=== PATIENT | female | born 1995 | race Caucasian/White ===

== ENCOUNTER 2022-06-16 18:27 | Emergency (ER) | payer BC, SELFPAY ==
[2022-06-16 18:39] VITALS: BP 133/95; PULSE 98; RESP 16; TEMP 36.2; O2SAT 99; BMI 53.7
--- NOTE | 2022-06-16 18:45 | CRLHL7_ITS ---
For Patients: As a result of the Cures Act, medical imaging exams and procedure reports are released immediately into your electronic medical record. You may view this report before your referring provider. If you have questions, please contact your health care provider. INDICATION: Back pain. TECHNIQUE: Lumbar spine 2 view COMPARISON: None. FINDINGS: Bones: Alignment is normal. No fractures or significant bone lesions. Joints: Disc spaces and facets are unremarkable. Soft tissues: Unremarkable. IMPRESSION: Unremarkable lumbar spine. Dictated by Cholo Hernandez MD @ 06/16/2022 7:34:35 PM (Electronically Signed)
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
[2022-06-16] MEDS: KETOROLAC 10 MG TABLET PO (18:56)
== END 2022-06-16 19:19 | disposition home or self-care (01) ==
LOC: ED 19:08
PROVIDERS: Emergency Provider Family Medicine
DX: M54.50 Low back pain, unspecified (principal); Y04.8XXA Assault by other bodily force, initial encounter
CPT/HCPCS: 72100; 99284; A9270

== ENCOUNTER 2022-08-19 10:12 | Outpatient (CLI) | payer BC, SELFPAY ==
[2022-08-19 15:33] LABS: Cholesterol* 198 mg/dL (90-199)
[2022-08-19 15:34] LABS: HDL Cholesterol* 43 mg/dL (>=50); LDL Cholesterol Calculated 128 mg/dL (<100); Triglycerides* 135 mg/dL (40-149)
[2022-08-19 16:04] LABS: Chlamydia DNA Amplified* NOT DETECTED (No Detected); GC DNA Amplified* NOT DETECTED (No Detected)
[2022-08-20 22:52] LABS: Prolactin 6.2 ng/mL (2.8-29.2)
[2022-08-21 18:55] LABS: DHEAS 572 ug/dL (99-340)
[2022-08-24 11:37] LABS: 17-Hydroxyprogesterone HPLC 19.56 ng/dL (<=206.00)
[2022-08-25 18:16] LABS: Sex Hormone Binding Globulin 27 nmol/L (25-122); Testosterone Bioavailable 14.7 ng/dL (2.2-20.6); Testosterone, Free LC-MS/MS 5.4 pg/mL (0.8-7.4); Testosterone, LC-MS/MS 29 ng/dL (9-55)
== END 2022-08-19 10:13 | disposition home or self-care (01) ==
PROVIDERS: Visit Provider Registered Nurse
DX: E66.01 Morbid (severe) obesity due to excess calories (principal); L68.0 Hirsutism; Z11.3 Encounter for screening for infections with a predominantly sexual mode of transmission; Z13.6 Encounter for screening for cardiovascular disorders
CPT/HCPCS: 80061; 82627; 83498; 84146; 84270; 84402; 84403; 84443; 87491; 87591

== ENCOUNTER 2022-08-26 14:47 | Outpatient (CLI) | payer BC, SELFPAY ==
[2022-08-26 22:03] LABS: Chloride* 106 mmol/L (96-114); Sodium* 140 mmol/L (135-149)
[2022-08-26 22:06] LABS: Creatinine* 0.5 mg/dL (0.5-1.5); Estimated Glomerular Filt Rate 130 ml/min
[2022-08-26 22:07] LABS: Carbon Dioxide* 27 mmol/L (20-32)
== END 2022-08-26 14:48 | disposition home or self-care (01) ==
PROVIDERS: Visit Provider Registered Nurse
DX: Z13.9 Encounter for screening, unspecified (principal)
CPT/HCPCS: 80051; 82565